=== PATIENT | male | born 1950 | race Hispanic/Latino ===

== ENCOUNTER 2019-07-10 08:43 | Inpatient (IN) | payer MEDICARE, OTHER ==
[~2019-07-10] VITALS: Ht 172.7 cm; Wt 81.6 kg
[2019-07-10 09:11] LABS: BASOPHILS % 0.2 % (0.0-1.0); EOSINOPHILS % 0.2 % (0.0-6.0); HEMATOCRIT 38.9 % (38.2-49.6); HEMOGLOBIN 12.9 g/dL (14.0-18.0); LYMPHOCYTES # (AUTO) 1.4 (1.0-3.2); LYMPHOCYTES % 10.8 % (18.0-39.1); MEAN CORPUSCULAR HEMOGLOBIN 27.2 pg (28-32); MEAN CORPUSCULAR HGB CONC 33.2 g/dL (31-35); MEAN CORPUSCULAR VOLUME 81.9 fL (81-99); MONOCYTES # (AUTO) 0.9 (0.2-0.8); MONOCYTES % 7.1 % (4.4-11.3); NEUTROPHILS # (AUTO) 10.1 (2.1-6.9); NEUTROPHILS % 81.3 % (38.7-80.0); PLATELET COUNT 207 x10e3/uL (140-360); RED BLOOD COUNT 4.75 x10e6/uL (4.3-5.7); RED CELL DISTRIBUTION WIDTH 13.5 % (11.7-14.4)
[2019-07-10 09:18] LABS: CLARITY,URINE HAZY (CLEAR); COLOR,URINE YELLOW (YELLOW); LEUKOCYTE ESTERASE ,URINE NEGATIVE (NEGATIVE); NITRITE,URINE NEGATIVE (NEGATIVE)
[2019-07-10 09:19] LABS: BILIRUBIN,URINE NEGATIVE (NEGATIVE); KETONES,URINE 2+ (NEGATIVE); PROTEIN,URINE DIPSTICK TRACE (NEGATIVE); URINE UROBILINOGEN 0.2 mg/dL (0.2 - 1)
[2019-07-10] MEDS ORDERED: SODIUM CHLORIDE 0.9% 1000ML 1,000 ML IV STA (09:19)
[2019-07-10 09:22] LABS: ALANINE AMINOTRANSFERASE 20 IU/L (0-55); ALBUMIN 4.1 g/dL (3.5-5.0); ALKALINE PHOSPHATASE 96 IU/L (40-150); ANION GAP 15.2 mmol/L (8-16); BLOOD UREA NITROGEN 12 mg/dL (7-26); BUN/CREATININE RATIO 14 (6-25); CALCIUM 9.8 mg/dL (8.4-10.2); CARBON DIOXIDE 24 mmol/L (22-29); CHLORIDE 101 mmol/L (98-107); CREATININE, SERUM 0.83 mg/dL (0.72-1.25); EST GLOMERULAR FILTRATION RATE > 60 ML/MIN (60-); GLUCOSE 216 mg/dL (74-118); POTASSIUM 3.2 mmol/L (3.5-5.1); SODIUM 137 mmol/L (136-145)
[2019-07-10 09:25] LABS: INR 1.04; PROTHROMBIN TIME 14.1 seconds (11.9-14.5)
[2019-07-10 09:26] LABS: PARTIAL THROMBOPLASTIN TIME 40.3 seconds (23.8-35.5)
[2019-07-10 09:30] LABS: BACTERIA,URINE RARE /HPF; EPITHELIAL CELLS,URINE RARE /LPF; MUCUS,URINE MODERATE (RARE); RBC,URINE 0-5 /HPF (0-5); WBC,URINE (MAN) 0-5 /HPF (0-5)
--- NOTE | 2019-07-10 09:36 | NUR ---
pt states he does not take any medications
[2019-07-10 09:37] LABS: MAGNESIUM 2.1 MG/DL (1.3-2.1)
[2019-07-10 09:39] LABS: CREATINE KINASE 24 IU/L (30-200)
[2019-07-10] MEDS ORDERED: PANTOPRAZOLE 40 MG 10ML VIAL IV ONE (10:00)
[2019-07-10] MEDS ORDERED: ONDANSETRON HCL INJ 2MG/ML 2ML 2 MG/ML VIAL IV ONE (10:00)
[2019-07-10] MEDS ORDERED: MORPHINE SULFATE INJ 4 MG/ML INJ 1ML IV ONE (10:00)
[2019-07-10] MEDS ORDERED: POTASSIUM CHLORIDE 20 MEQ TAB CR PO ONE (10:30)
--- NOTE | 2019-07-10 10:31 | Diagnostic Imaging Report ---
CT Abdomen And Pelvis with Intravenous Contrast INDICATION: Epigastric pain with meals ^IGOR/RUQ ABD PAIN, N/V TECHNIQUE: Thin collimation axial images obtained from the diaphragm to the level of the pubic symphysis following the uneventful administration of 100 cc of low osmolar, nonionic intravenous contrast. Dose reduction techniques used: Automated exposure control, adjustment of the mAs and/or kVp according to patient size, standardized low-dose protocol, and/or iterative reconstruction technique. RADIATION DOSE: Total DLP: None mGy*cm Estimated effective dose: (DLP x 0.015 x size factor) mSv CTDIvol has been reviewed. It is below the limits set by the Radiation Protocol Committee (RPC). COMPARISON: None. ABDOMEN FINDINGS: Lung Bases: Trace bibasilar atelectasis. Visualized portion mediastinum is normal. Liver: The right lobe measures 20 cm in length.. No evidence for mass. Gallbladder: Present. There is mild diffuse gallbladder wall hyperemia and pericholecystic inflammation around the cystic duct. Biliary tree: Trace intrahepatic biliary ductal dilatation. The common bile duct measures 10 mm in diameter and comes to a tight taper at the ampulla. Pancreas: Normal attenuation without mass or ductal dilatation. Spleen: 16.1 cm in length. Normal attenuation. No mass. Adrenal Glands: No evidence for mass. Kidneys: Right: Normal enhancement. No soft tissue mass. No hydronephrosis. Left: Normal enhancement. Lower pole cyst measures 17 mm.. No hydronephrosis. Lymph Nodes: Periportal lymph nodes are prominent and increased in number, measuring up to 16 mm. Aorta: Normal in diameter with scattered calcifications PELVIS FINDINGS: Bowel: Stomach: Normal. Small Bowel: Normal in caliber with normal wall thickness. Large Bowel: Normal in caliber with normal wall thickness. Appendix: Normal appendix. Bladder: Circumferential mural thickening. No mass. Prostate gland measures 4.4 x 5.6 cm Peritoneum/retroperitoneum: No free fluid, fluid collection, or free air. Bones: Mild degenerative changes of the spine. No focal osseous lesions. There is left sacralization of L5. IMPRESSION: 1. Mild intrahepatic and extrahepatic biliary ductal dilatation with inflammation in the right upper quadrant near the cystic duct. Findings are concerning for acute cholecystitis. 2. Hepatosplenomegaly. 3. No evidence for bowel obstruction or inflammation. Normal appendix. 4. Mild prostatomegaly with bladder wall thickening suggestive of outlet obstruction. Signed by: Dr. Fredi Eric MD on 07/10/2019 10:28 AM
[2019-07-10] MEDS ORDERED: PIPER-TAZ 3.375 GM 50 ML IV SCH (11:00)
[2019-07-10] MEDS ORDERED: MORPHINE SULFATE INJ 4 MG/ML INJ 1ML IV PRN (11:15)
[2019-07-10] MEDS ORDERED: ONDANSETRON HCL INJ 2MG/ML 2ML 2 MG/ML VIAL IV PRN (11:15)
[2019-07-10] MEDS ORDERED: KCL 20MEQ/.9 SOD CHL 1,000 ML IV ONE (11:15)
--- OUTSIDE RECORDS SUMMARY | 2019-07-10 11:23 | XMS REPORT ---
Author Author [facility] Address Unknown Phone Unavailable Care Team Providers Care Digital Forensics Investigator Name Role Phone Jaquelin KITCHEN Unavailable Unavailable Problems This patient has no known problems. Allergies, Adverse Reactions, Alerts This patient has no known allergies or adverse reactions. Medications This patient has no known medications. Results Test Description Test Time Test Comments Text Results Atomic Results Result Comments CT ABDOMEN/PELVIS W 2019-07-10 10:23:00 [place] [address] Patient Name: DARA GOMEZ MR #: [id number] : 1950 Age/Sex: 69/M Req #: [id number] Adm Physician: Ordered by: ANAY KITCHEN MD Report #: [id number] Location: ER Room/Bed: Procedure: [id number] CT/CT ABDOMEN/PELVIS W Exam Date: Exam Time: REPORT STATUS: Signed CT Abdomen And Pelvis with Intravenous Contrast INDICATION: Epi gastric pain with meals IGOR/RUQ ABD PAIN, N/V TECHNIQUE: Thin collimation axial images obtained from the diaphragm to the level of the pubic symphysis following the uneventful administration of 100 cc of low osmolar, nonionic intravenous contrast. Dose reduction techniques used: Automated exposure control, adjustment of the mAs and/or kVp according to patient size, standardized low-dose protocol, and/or iterative reconstruction technique. RADIATION DOSE: Total DLP: None mGy*cm Estimated effective dose: (DLP x 0.015 x size factor) mSv CTDIvol has been reviewed. It is below the limits set by the Radiation Protocol Committee (RPC). COMPARISON: None. ABDOMEN FINDINGS: Lung Bases: Trace bibasilar atelectasis. Visualized portion mediastinum is normal. Liver: The right lobe measures 20 cm in length.. No evidence for mass. Gallbladder: Present. There is mild diffuse gallbladder wall hyperemia and pericholecystic inflammation around the cystic duct. Biliary tree: Trace intrahepatic biliary ductal dilatation. The common bile duct measures 10 mm in diameter and comes to a tight taper at the ampulla. Pancreas: Normal attenuation without mass or ductal dilatation. Spleen: 16.1 cm in length. Normal attenuation. No mass. Adrenal Glands: No evidence for mass. Kidneys: Right: Normal enhancement. No soft tissue mass. No hydronephrosis. Left: Normal enhancement. Lower pole cyst measures 17 mm.. No hydronephrosis. Lymph Nodes: Periportal lymph nodes are prominent and increased in number, measuring up to 16 mm. Aorta: Normal in diameter with scattered calcifications PELVIS FINDINGS: Bowel: Stomach: Normal. Small Bowel: Normal in caliber with normal wall thickness. Large Bowel: Normal in caliber with normal wall thickness. Appendix: Normal appendix. Bladder: Circumferential mural thickening. No mass. Prostate gland measures 4.4 x 5.6 cm Peritoneum/retroperitoneum: No free fluid, fluid collection, or free air. Bones: Mild degenerative changes of the spine. No focal osseous lesions. There is left sacralization of L5. IMPRESSION: 1. Mild intrahepatic and extrahepatic biliary ductal dilatation with inflammation in the right upper quadrant near the cystic duct. Findings are concerning for acute cholecystitis. 2. Hepatosplenomegaly. 3. No evidence for bowel obstruction or inflammation. Normal appendix. 4. Mild prostatomegaly with bladder wall thickening suggestive of outlet obstruction. Signed by: Dr. Lynda Eric MD on 07/10/2019 10:28 AM Dictated By: LYNDA ERIC MD [id number] Transcribed By: FRANKIE on 07/10/19 1028 COPY TO: ANAY KITCHEN MD
--- NOTE | 2019-07-10 12:33 | Diagnostic Imaging Report ---
EXAMINATION: CHEST SINGLE (PORTABLE) COMPARISON: CT abdomen 1013 hours INDICATION: ^ABD PAIN ^[id number] ^1213 DISCUSSION: Frontal view of the chest obtained at 1211 hours. HEART AND MEDIASTINUM: The cardiomediastinal silhouette is unremarkable. LINES: None. LUNGS: Trace bibasilar atelectasis. PLEURA: No pleural effusion or pneumothorax. BONES AND SOFT TISSUES: Healed left upper rib fractures, numbers 4-6. The soft tissues are normal. IMPRESSION: Mild bibasilar atelectasis. Signed by: Dr. Fredi Eric MD on 07/10/2019 12:30 PM
--- NOTE | 2019-07-10 12:53 | NUR ---
dr pola nayak at pt bedside
--- NOTE | 2019-07-10 13:43 | Consultation ---
DATE OF CONSULTATION: Stat Consultation REASON FOR CONSULTATION: Cholecystitis. HISTORY OF PRESENT ILLNESS: The patient is a pleasant 69-year-old otherwise healthy male, who started having mid upper abdominal pain on Thursday and this was associated with nausea. He did not have any previous episodes. He did not have any history of indigestion, regurgitation, pyrosis, or any GI problems. No history of constipation or rectal bleeding. The patient persisted with the pain, which was severe and then came to the emergency room where he had a CT scan that revealed inflammatory changes in the area of the neck of the gallbladder consistent with cholecystitis. No stones were seen. There was some mild ductal dilatation of the intrahepatic radicles. The common duct was 10 mm. The patient's liver chemistries were normal except for bilirubin of 1.7. PAST MEDICAL HISTORY: Significant for no major medical problems. The only surgery he has had is a repair of umbilical hernia. He is not taking any medicines. He does not drink. Does not smoke. He has no allergies. REVIEW OF SYSTEMS: Significant for what has been stated. He denies any constipation, however, has not had a bowel movement since Thursday when the pain started. PHYSICAL EXAMINATION: GENERAL: Reveals a 69-year-old male, at this point he is in no acute distress. HEAD, EYES, EARS, NOSE, AND THROAT: Revealed no acute process. LUNGS: Clear. HEART: Reveals regular sinus rhythm. ABDOMEN: Somewhat distended and tympanitic, but it is nontender. There is a healed umbilical scar with no recurrence. EXTREMITIES: Revealed no clubbing, cyanosis, or edema. NEUROLOGIC: Nonfocal. He has difficulties hearing on the right side. LABORATORY DATA: Admission CT scan has been discussed. Admission white count is 12.45 with normal electrolytes except for a potassium of 3.2. The liver chemistries are normal except for bilirubin of 1.7. Amylase and lipase are normal. ASSESSMENT: Probable cholecystitis. There is some ductal dilatation, which will be evaluated with an MRCP, which could not be done today, but will be done early in the morning tomorrow. In the meantime, since the CAT scan did not reveal any stones, we are going to go ahead and obtain a stat ultrasound to further evaluate the issue. Further surgical recommendation will be forthcoming once we have completed the workup. In the meantime, the patient is getting intravenous antibiotics and we will keep the patient n.p.o. Thank you very much for the courtesy of this consultation. MD CARLIN Nagy/BIBI /[id number]
--- NOTE | 2019-07-10 14:17 | Diagnostic Imaging Report ---
HISTORY: ^r/o gallstones ^[id number] ^1335 TECHNIQUE: Selected images from limited abdominal ultrasound provided for INTERPRETATION: COMPARISON: CT abdomen/pelvis 1013 hours FINDINGS: Pancreas: Not visualized due to bowel gas. Liver: Measures 15 cm in sagittal plane. The echotexture is normal. No mass in the visualized portions. Portal Vein: Measures 0.9 cm. Proper directional flow on spectral Doppler interrogation. Intrahepatic bile ducts: Trace central intrahepatic biliary duct distention. Gallbladder: Present and is filled with calcified gallstones and sludge. No decubitus images were obtained to determine mobility. No gallbladder wall thickening or pericholecystic fluid. Sonographic Villalta sign is negative. CBD: 0.8 cm. No intraluminal filling defects of the visualized portions. Right Kidney: 11.1 cm in greatest length. The echotexture is normal. There is no evidence for mass. There is no collecting system dilatation or evidence of obstruction. No renal calculi evident. No adjacent free fluid or fluid collections. Visualized IVC and aorta are not visualized due to bowel gas. There is no free fluid. IMPRESSION: Cholelithiasis. Mobility of the gallstones cannot be determined. No sonographic evidence of acute cholecystitis. Nonvisualization of the pancreas, aorta, and IVC due to bowel gas. Signed by: Dr. Fredi Eric MD on 07/10/2019 2:13 PM
[2019-07-10] MEDS ORDERED: SODIUM CHLORIDE 0.9% 50ML 50 ML ONE (16:15)
[2019-07-10] MEDS ORDERED: IOPAMIDOL 370 MG/ML 200 ML INFUS..BTL INJ ONE (16:15)
[2019-07-10 17:04] LABS: CREATINE KINASE 26 IU/L (30-200)
[2019-07-10 17:14] VITALS: BP 155/76
[2019-07-10] MEDS: PIPER-TAZ 3.375 GM 50 ML IV SCH (17:54)
[2019-07-10 20:00] VITALS: BP 146/66
--- NOTE | 2019-07-10 20:28 | NUR ---
HIGH TEMP. NOTED. NOTIFIED DR CERNA. NEW ORDER RECEIVED.
[2019-07-10] MEDS ORDERED: ACETAMINOPHEN 650 MG SUPP PR PRN (20:30)
[2019-07-10 21:00] VITALS: BP 146/66
[2019-07-10] MEDS: ACETAMINOPHEN 325 MG TAB PO PRN (21:06)
[2019-07-10 23:24] LABS: CHOL/HDL RATIO 2.5 (3.9-4.7)
[2019-07-10 23:35] LABS: CREATINE KINASE 23 IU/L (30-200)
[2019-07-11] VITALS (7 sets, daily range): BP systolic 130–139; BP diastolic 59–64
[2019-07-11] MEDS: PIPER-TAZ 3.375 GM 50 ML IV SCH ×4 (01:14→23:45)
--- NOTE | 2019-07-11 05:21 | History and Physical ---
CHIEF COMPLAINT: Right upper quadrant abdominal pain. HISTORY OF PRESENT ILLNESS: This is a 69-year-old male with no past medical history, does not take any medications at home, presents to the ED with a 2-day history of right upper quadrant abdominal pain that began on Thursday of this week. The patient reports that he suddenly, after he ate some breakfast, noticed some right upper quadrant abdominal pain that continued to get progressively worse. He had some episodes of nausea and vomiting. Denies any hematemesis or hemoptysis. Denies any chest pain. The patient came into the ED due to worsening abdominal pain. He was found to have possible acute cholecystitis in which General Surgery has been consulted. The patient seen and evaluated at bedside on the medical floor with the nursing staff. The patient is currently doing well with no complaints. The patient's son was at bedside and was able to translate to his father the plan of care. REVIEW OF SYSTEMS: Pertinent positive: Right upper quadrant abdominal pain, nausea, vomiting, and decreased oral intake. Pertinent negatives: Denies any chest pain, palpitation, dysuria, hematuria, frequency, urgency, lightheadedness, dizziness, headaches, shortness of breath, cough, congestion, fever, or any other complaints. The rest of 14-point review of systems have been reviewed with the patient and are negative. ALLERGIES: NO KNOWN DRUG ALLERGIES. HOME MEDICATIONS: None. PAST MEDICAL HISTORY: Reports none. PAST SURGICAL HISTORY: None. FAMILY HISTORY: Hypertension and diabetes. SOCIAL HISTORY: No drugs. No alcohol. Does not smoke. He is . He has children. PHYSICAL EXAMINATION: VITAL SIGNS: Temperature is 101.4 is the T-max. On admission, his temperature was 99.5, pulse is 102, respiratory rate is 18, blood pressure 146/66, and pulse ox 94% on room air. LABORATORY FINDINGS: White count was 12.4, hemoglobin 12.9, hematocrit 38.9, platelets of 207. Coagulation; PT 14, INR 1, PTT 40. Chemistry; sodium is 137, potassium is 3.2, chloride 101, bicarb 24, anion gap of 15, BUN is 12, creatinine 0.83, glucose is 216, calcium 9.8, and magnesium 2.1. Total bilirubin was 1.7, AST 11, ALT 20, and alkaline phosphatase is 96. His CK was negative. Troponins were all negative. Total protein is 8.1, lipase is 18, and amylase is 25. Urinalysis shows 3+ glucose, 2+ ketones. MICROBIOLOGY: None. IMAGING STUDIES: Ultrasound of the gallbladder showed cholelithiasis, but no evidence of cholecystitis. CT of the abdomen and pelvis showed mildly intrahepatic and extrahepatic biliary ductal dilatation with inflammation of the right upper quadrant in the cystic duct, findings concerning for acute cholecystitis. Hepatosplenomegaly seen. No evidence of bowel obstruction or inflammation. Normal appendix. Mild prostatomegaly with bladder wall thickening suggestive of outlet obstruction. Chest x-ray was found to show mild bibasilar atelectasis. PHYSICAL EXAMINATION: GENERAL: No acute distress, alert, and oriented x3. Cooperative on examination. HEENT: Head; normocephalic, atraumatic. Eyes; pupils are equal, round, and reactive to light bilaterally. Extraocular movements are intact bilaterally. Throat; no evidence of erythema or exudates in the posterior pharynx. Has poor dentition. NECK: Supple. Good range of motion. PULMONARY: Clear to auscultation bilaterally. No wheezing, rales, or rhonchi. No crackles appreciated. CARDIOVASCULAR: Positive S1, S2. No murmurs, rubs, or gallops. ABDOMEN: He was tender to palpation in the right upper quadrant. No rebound. No guarding. MUSCULOSKELETAL: Strength is 5/5 throughout. No evidence of any muscle deficits on examination. No weakness appreciated. NEUROLOGIC: Cranial nerves 2 through 12 were grossly intact. No evidence of any neurological deficits on exam. SKIN: Intact. Warm to touch. Good cap refill. PSYCHIATRIC: Normal affect and mood. EXTREMITIES: No edema. Good range of motion throughout. IMPRESSION: 1. Concern for acute cholecystitis. 2. Abdominal pain, nausea, and vomiting. 3. Electrolyte abnormalities. 4. Hyperglycemia. PLAN: At this time, General Surgery has been consulted. MRCP has been ordered. GI will be consulted. Pain control, n.p.o., IV fluids, IV antibiotics. I did go ahead and get blood cultures x2. I also ordered suppository Tylenol. We are going to replace his electrolytes accordingly. As for his hyperglycemia, I will go ahead and get a lipid panel and hemoglobin A1c for further investigation. Get a.m. labs. At this time, General Surgery already evaluated the patient and we will keep the patient n.p.o. for now. He will likely need some sort of surgical intervention in the next several days. Otherwise, we will put him on SCDs for DVT prophylaxis, to avoid any anticoagulation for possible surgery or any kind of procedure here in the next 1 to 2 days. I discussed the plan of care with the patient, patient's son, and nursing staff. MD ANA Starks/BIBI /[id number]
[2019-07-11 05:24] LABS: BASOPHILS % 0.4 % (0.0-1.0); EOSINOPHILS % 0.3 % (0.0-6.0); HEMATOCRIT 38.6 % (38.2-49.6); HEMOGLOBIN 12.7 g/dL (14.0-18.0); LYMPHOCYTES # (AUTO) 0.8 (1.0-3.2); MEAN CORPUSCULAR HEMOGLOBIN 26.9 pg (28-32); MEAN CORPUSCULAR HGB CONC 32.9 g/dL (31-35); MEAN CORPUSCULAR VOLUME 81.8 fL (81-99); MONOCYTES # (AUTO) 0.8 (0.2-0.8); MONOCYTES % 7.7 % (4.4-11.3); NEUTROPHILS # (AUTO) 8.8 (2.1-6.9); NEUTROPHILS % 83.1 % (38.7-80.0); PLATELET COUNT 166 x10e3/uL (140-360); RED BLOOD COUNT 4.72 x10e6/uL (4.3-5.7); RED CELL DISTRIBUTION WIDTH 13.5 % (11.7-14.4)
[2019-07-11 05:50] LABS: ALANINE AMINOTRANSFERASE 112 IU/L (0-55); ALBUMIN 3.5 g/dL (3.5-5.0); ALBUMIN/GLOBULIN RATIO 0.9 (0.8-2.0); ALKALINE PHOSPHATASE 231 IU/L (40-150); ANION GAP 14.4 mmol/L (8-16); BLOOD UREA NITROGEN 14 mg/dL (7-26); BUN/CREATININE RATIO 19 (6-25); CALCIUM 9.3 mg/dL (8.4-10.2); CARBON DIOXIDE 21 mmol/L (22-29); CHLORIDE 103 mmol/L (98-107); CREATININE, SERUM 0.73 mg/dL (0.72-1.25); EST GLOMERULAR FILTRATION RATE > 60 ML/MIN (60-); GLUCOSE 163 mg/dL (74-118); LIPASE 10 U/L (8-78); POTASSIUM 3.4 mmol/L (3.5-5.1); SODIUM 135 mmol/L (136-145)
[2019-07-11 06:02] LABS: CREATINE KINASE 29 IU/L (30-200)
[2019-07-11] MEDS: ACETAMINOPHEN 325 MG TAB PO PRN (06:05)
--- NOTE | 2019-07-11 07:22 | NUR ---
Patient is back from MRI at this time. Report received from night nurse while patient is in MRI.
--- NOTE | 2019-07-11 08:34 | Diagnostic Imaging Report ---
MRCP (magnetic resonance cholangiopancreatography) HISTORY: Cholecystitis Comparison: CT of the abdomen and pelvis and ultrasound of the abdomen performed 07/10/2019, Technique: Multiplanar and multisequence MRI images of the abdomen were obtained without contrast. Three-dimensional reconstructed images of the biliary tree are also reviewed. FINDINGS: The common bile duct appears normal in caliber, measuring 7 mm in maximum diameter. No intrahepatic biliary dilation. No pancreatic ductal dilation. No filling defects are identified within the biliary system to suggest choledocholithiasis. The gallbladder contains multiple gallstones. There is mild gallbladder wall thickening and surrounding inflammatory change. No mass is identified in the region of the ampulla or pancreatic head. Unremarkable appearance of the liver, pancreas, spleen, adrenal glands, and kidneys. The visualized bowel loops appear normal in caliber. No free fluid or lymphadenopathy is seen within the abdomen. Impression: 1. Cholelithiasis with evidence of acute cholecystitis. 2. No evidence of choledocholithiasis or biliary ductal dilatation. No filling defects are identified within the biliary tree. Signed by: Les Pina MD on 07/11/2019 8:30 AM
--- NOTE | 2019-07-11 09:25 | NUR ---
OR nurse Cecilia states HIDA scan ordered by Dr. Ashley Garcia is cancelled.
--- NOTE | 2019-07-11 10:05 | NUR ---
Patient is transported for surgery at this time.
[2019-07-11] MEDS ORDERED: BUPIVACAINE 0.25%/EPI 30ML SDV INJ ONE (10:14)
[2019-07-11] MEDS ORDERED: PIPER-TAZ 3.375 GM 50 ML ONE (11:25)
[2019-07-11] MEDS ORDERED: METRONIDAZOLE 500MG/NS 100ML 100 ML IV ONE (11:41)
[2019-07-11] MEDS ORDERED: ONDANSETRON HCL INJ 2MG/ML 2ML 2 MG/ML VIAL IV PRN (13:45)
[2019-07-11] MEDS ORDERED: FENTANYL CITRATE/PF 100MCG/2 ML INJ ONE ×2 (13:55→18:01)
[2019-07-11] MEDS ORDERED: PIPER-TAZ 3.375 GM 50 ML IV SCH (14:00)
[2019-07-11] MEDS ORDERED: MEPERIDINE HCL INJ 25 MG/ML VIAL ONE (14:11)
--- NOTE | 2019-07-11 14:37 | NUR ---
Patient is back from surgery at this time. Abdominal surgical site no bleeding, dressing dry and intact. OSVALDO drain to right lower abdomen, emptied 50 ML of blood. Respiration even and unlabored without SOB. Patient is currently NPO at this time, but can have ice chips per Dr. Suad Carr. Family at bedside. Call light in reach.
--- NOTE | 2019-07-11 15:16 | Operative Report ---
DATE OF PROCEDURE: 07/11/2019 SURGEON: Piter Dasilva MD PREOPERATIVE DIAGNOSES: Acute cholecystitis. POSTOPERATIVE DIAGNOSES: 1. Acute gangrenous cholecystitis with empyema of the gallbladder, an abscess formation, all secondary to cholelithiasis. 2. Diabetes mellitus, undiagnosed. INDICATION AND FINDINGS: The patient is a 69-year-old pleasant male, admitted to the hospital, complaining of abdominal pains since Thursday prior to admission. In the emergency room, he was evaluated, he had a CT scan that revealed changes consistent with cholecystitis. The presence of gallstones was confirmed by ultrasound. He had a preoperative MRI/CT because there was some ductal dilatation. On the CT scan raising the possibility of choledocholithiasis. INTRAOPERATIVE FINDINGS: Acute gangrenous cholecystitis with empyema of the gallbladder and an abscess formation in the pericystocolic area of the fundus of the gallbladder. There was no ductal dilatation. There were several large stones. DESCRIPTION OF PROCEDURE: With the patient lying on the operative table in supine position after administration of general anesthesia, he was prepped and draped for laparoscopic cholecystectomy. The procedure was begun by establishing pneumoperitoneum in the right upper quadrant midclavicular line because of previous umbilical hernia repair. After we did that, then we placed the 10/11 trocar in the umbilical site as well as subxiphoid region, and lateral working port in the right axillary region and then we had to be put a 5th trocar due to the severity of the inflammatory process in the left upper quadrant. When he did the laparoscopy, the omentum was stuck and very thicken to the gallbladder in the area of the fundus. There was severe inflammatory changes. We methodically exposed the gallbladder by detaching the omentum from the fundus until we exposed the gallbladder. There was some pus that was encountered in the in the fundus of the gallbladder; cultures and sensitivities were taken of that. We then began to mobilize the gallbladder by grasping the two forces through the fundus and the neck of the gallbladder carefully and methodically until we after careful dissection and that was begun in the gallbladder neck posteriorly exposed the cystic duct. The junction with the common bile duct was seen 360 degrees circumferentially. We also identified the cystic artery and a plate of the liver at that point, we transected the cystic duct between three titanium clips as well as the cystic artery and then continued to mobilize the gallbladder from the liver bed and 2nd branch which was located posterior was identified, transected between titanium clips. We continued the dissection with mobilization of the gallbladder using a combination of electrocautery, hydrodissection counter, and counter traction until we detached the gallbladder; placed in an endobag and removed through the umbilical port. After we did that, we inspected the operative field, there was some minor oozing that was cauterized using electrocautery. All the bleeding was stopped. We then placed a 10 mm flat Zeferino-Grey drain through the right anterior axillary line trocar and secured there with a 2-0 silk, connected it to self-suction. After did that, we inspected the operative field and there was no bile leak, no bleeding, no apparent bowel injury. We went ahead and released the pneumoperitoneum, closed the wound using 3-0 Vicryl as well as the subxiphoid port and the skin of all the port was closed using carlie except for the umbilical port, which was closed using 3-0 silk because of previous surgery there and scar formation. Sterile dressing was applied. The patient tolerated the procedure well and taken to recovery room in stable condition, and no family was found in the waiting room area. I placed a 10 mm Zeferino-Grey drain was placed in the right upper quadrant to drain the gallbladder fossa and foramen of [place]. MD CARLIN Nagy/BIBI /[id number]
--- NOTE | 2019-07-11 15:36 | Progress Note ---
DATE: 07/11/2019 Medicine Progress Note SUBJECTIVE: The patient underwent laparoscopic cholecystectomy. Doing well with no other issues at this time. PHYSICAL EXAMINATION: VITAL SIGNS: Temperature 98.8, pulse 90, respiratory rate is 18, blood pressure 136/63, pulse ox 95% on room air. GENERAL: Not in acute distress. Alert, and oriented x3. Cooperative on examination. HEENT: Head; normocephalic, atraumatic. Eyes; pupils are equal, round, and reactive to light bilaterally. Extraocular movements are intact bilaterally. NECK: Supple. Good range of motion. CARDIOVASCULAR: Positive S1, S2. No murmurs, rubs, or gallops. ABDOMEN: Soft, nondistended, and nontender to palpation. Bowel sounds present. MUSCULOSKELETAL: Strength is 5/5 throughout. No evidence of any muscle deficits on examination. No weakness appreciated. NEUROLOGIC: Cranial nerves 2 through 12 were grossly intact. No evidence of any neurological deficits on exam. SKIN: Intact. Warm to touch. Good cap refill. PSYCHIATRIC: Normal affect and mood. EXTREMITIES: No edema. Good range of motion throughout. LABORATORY FINDINGS: Show white count 10.5, hemoglobin 12.7, hematocrit is 38, platelets of 166. Chemistries; sodium 135, potassium 3.4, chloride 103, bicarb 21, anion gap of 14, BUN is 14, creatinine is 0.73, glucose 163. LFTs slightly elevated, AST 70, ALT 112, total bilirubin 2.3, alkaline phosphatase 231. Troponins were all negative. Blood cultures no growth today. Gram stain, no growth today. Urine cultures were no growth. MRCP performed today shows cholelithiasis with evidence of acute cholecystitis. No evidence of choledocholithiasis or biliary ductal dilatation. No filling defects are identified within the biliary tree. IMPRESSION: 1. Acute cholecystitis. 2. Abdominal pain, nausea and vomiting. 3. Electrolyte abnormalities. 4. Hyperglycemia. PLAN: The patient is undergoing laparoscopic cholecystectomy. Started on clear liquid diet after surgery per General Surgery recommendations. IV fluids, IV antibiotics and pain control. Blood culture showed no growth today. We will continue to monitor all cultures. Once he is p.o., we will initiate diet. Put him on SCDs for DVT prophylaxis. Discussed plan of care with nursing staff. MD ANA Starks/NEALL /[id number]
[2019-07-11] MEDS ORDERED: DEXAMETHASONE SOD PHOS INJ 4 MG/ML VIAL ONE (17:34)
[2019-07-11] MEDS ORDERED: PROPOFOL IV EMULSION 10 MG/ML 20 ML VIAL ONE (17:34)
[2019-07-11] MEDS ORDERED: LIDOCAINE HCL 2% LOCAL INJ 5 ML SDV VIAL INJ ONE (17:34)
[2019-07-11] MEDS ORDERED: ROCURONIUM BROMIDE 10 MG/ML 5ML VIAL ONE (17:34)
[2019-07-11] MEDS ORDERED: SEVOFLURANE INHAL SOLN 250 ML PEN BTL ONE (17:34)
[2019-07-11] MEDS ORDERED: ONDANSETRON HCL INJ 2MG/ML 2ML 2 MG/ML VIAL ONE (17:34)
[2019-07-11] MEDS: HYDROMORPHONE 1MG/1ML INJ IV PRN (18:38)
--- NOTE | 2019-07-11 19:20 | NUR ---
Received patient awake, not in distress, no complaints of pain at this time, family members at bedside. Call light within easy reach, advised to call for assistance anytime as needed. RLQ OSVALDO drain dressing moderately soaked, dressing reinforced with gauze and foam tape, 4 lap sites dressing dry and intact. Will monitor patient closely
[2019-07-11] MEDS: D5.45%NS/KCL 20MEQ 1,000 ML IV SCH ×2 (19:22→23:41)
[2019-07-11] MEDS: METRONIDAZOLE 500MG/NS 100ML 100 ML IV SCH (19:46)
--- NOTE | 2019-07-11 19:52 | NUR ---
Report given to production supervisor off shift. Respiration even and unlabored without SOB. Call light in reach. Family members at bedside.
[2019-07-12] VITALS (8 sets, daily range): BP systolic 138–168; BP diastolic 65–79
[2019-07-12] MEDS: METRONIDAZOLE 500MG/NS 100ML 100 ML IV SCH ×2 (00:30→05:00)
[2019-07-12] MEDS: HYDROMORPHONE 1MG/1ML INJ IV PRN ×3 (04:56→23:20)
[2019-07-12 05:11] LABS: BASOPHILS % 0.1 % (0.0-1.0); HEMATOCRIT 35.8 % (38.2-49.6); HEMOGLOBIN 11.5 g/dL (14.0-18.0); LYMPHOCYTES # (AUTO) 0.5 (1.0-3.2); LYMPHOCYTES % 6.2 % (18.0-39.1); MEAN CORPUSCULAR HEMOGLOBIN 26.7 pg (28-32); MEAN CORPUSCULAR HGB CONC 32.1 g/dL (31-35); MEAN CORPUSCULAR VOLUME 83.1 fL (81-99); MONOCYTES # (AUTO) 0.7 (0.2-0.8); MONOCYTES % 9.1 % (4.4-11.3); NEUTROPHILS # (AUTO) 6.4 (2.1-6.9); NEUTROPHILS % 84.3 % (38.7-80.0); PLATELET COUNT 154 x10e3/uL (140-360); RED BLOOD COUNT 4.31 x10e6/uL (4.3-5.7); RED CELL DISTRIBUTION WIDTH 13.7 % (11.7-14.4)
[2019-07-12 05:31] LABS: ALANINE AMINOTRANSFERASE 217 IU/L (0-55); ALBUMIN/GLOBULIN RATIO 0.8 (0.8-2.0); ALKALINE PHOSPHATASE 242 IU/L (40-150); ANION GAP 14.6 mmol/L (8-16); BLOOD UREA NITROGEN 17 mg/dL (7-26); BUN/CREATININE RATIO 19 (6-25); CALCIUM 8.9 mg/dL (8.4-10.2); CARBON DIOXIDE 20 mmol/L (22-29); CHLORIDE 108 mmol/L (98-107); EST GLOMERULAR FILTRATION RATE > 60 ML/MIN (60-); GLUCOSE 265 mg/dL (74-118); POTASSIUM 3.6 mmol/L (3.5-5.1); SODIUM 139 mmol/L (136-145)
[2019-07-12] MEDS: PIPER-TAZ 3.375 GM 50 ML IV SCH ×4 (06:10→23:20)
--- NOTE | 2019-07-12 07:05 | NUR ---
Received patient lying in bed with eyes open. Denies pain at this time. Abdominal dressing intact with OSVALDO to LLQ in placed and intact. Respiration even and unlabored without SOB.Call light in reach.
--- NOTE | 2019-07-12 10:52 | Progress Note ---
DATE: 07/12/2019 Medicine Progress Note SUBJECTIVE: The patient underwent laparoscopic cholecystectomy. He now has a OSVALDO drain that was performed yesterday 07/11/2019. He is doing well postoperatively, still n.p.o. except for ice chips. PHYSICAL EXAMINATION: VITAL SIGNS: Temperature is 97.2, pulse 85, respiratory rate 16, blood pressure 130/64, and pulse ox 97% on room air. GENERAL: Not in acute distress. Alert and oriented x3. Cooperative on examination. HEENT: Head; normocephalic, atraumatic. Eyes; pupils are equal, round, and reactive to light bilaterally. Extraocular movements intact bilaterally. Throat; no evidence of erythema or exudates in the posterior pharynx. Has poor dentition. NECK: Supple. Good range of motion. PULMONARY: Clear to auscultation bilaterally. No wheezing, no rales, no rhonchi, no crackles appreciated. CARDIOVASCULAR: Positive S1 and S2. No murmurs, rubs, or gallops appreciated. ABDOMEN: Soft, nondistended, and nontender to palpation. Bowel sounds present. He does have a OSVALDO drain in the right upper quadrant. SKIN: Intact. Warm to touch. Good cap refill. PSYCHIATRIC: Normal affect and mood. EXTREMITIES: No edema. Good range of motion throughout. LABORATORY FINDINGS: Show white count 7.5, hemoglobin 11.5, hematocrit is 35, and platelets of 154. Chemistry; sodium 139, potassium 3.6, chloride 108, bicarb 20, anion gap of 14, BUN 17, and creatinine is 0.9. LFTs are slightly elevated. Total bilirubin is 1.4, AST 217, ALT 217, and alkaline phosphatase is 242. Blood cultures, no growth to date. Urine cultures, no growth to date. Gallbladder culture shows gram-negative bacilli. IMPRESSION: 1. Acute cholecystitis, status post laparoscopic cholecystectomy, now with a OSVALDO drain. 2. Abdominal pain with nausea and vomiting, resolved. 3. Electrolyte abnormalities. 4. Type 2 diabetes. A1c is 8.3, explains why he has hyperglycemia. PLAN: At this time, continue with postop care. He has a OSVALDO drain, now has significant amount of fluid effusion, less likely that he will be discharged today. We will need to monitor the wound cultures that were sent yesterday from the gallbladder, which shows gram-negative bacilli. Continue with IV antibiotics for now. Continue to follow with General Surgery. He is n.p.o. Diet will be advanced per General Surgery. As for his diabetes, A1c is 8.3. We will continue with sliding scale while he is here. He will likely need to follow up as an outpatient with primary care physician. Upon discharge, he will be discharged on oral anti-glycemic medication for his type 2 diabetes diagnosis. Otherwise, continue to encourage ambulation. I will add low-dose heparin for DVT prophylaxis. MD ANA Starks/MODJacob /[id number]
[2019-07-12] MEDS: D5.45%NS/KCL 20MEQ 1,000 ML IV SCH (12:20)
[2019-07-12] MEDS: HYDROCODONE/APAP 7.5MG-325MG 1 EA TAB PO PRN (12:34)
--- NOTE | 2019-07-12 19:00 | NUR ---
Report given to weight shifter. Respiration even and unlabored without SOB. Call light in reach.
[2019-07-12] MEDS: ACETAMINOPHEN 325 MG TAB PO PRN (23:20)
[2019-07-13] MEDS: D5.45%NS/KCL 20MEQ 1,000 ML IV SCH (02:48)
[2019-07-13 04:00] VITALS: BP 152/78
[2019-07-13 05:12] LABS: BASOPHILS % 0.2 % (0.0-1.0); EOSINOPHILS % 0.9 % (0.0-6.0); HEMATOCRIT 34.1 % (38.2-49.6); HEMOGLOBIN 10.6 g/dL (14.0-18.0); LYMPHOCYTES # (AUTO) 0.5 (1.0-3.2); LYMPHOCYTES % 11.4 % (18.0-39.1); MEAN CORPUSCULAR HEMOGLOBIN 26.6 pg (28-32); MEAN CORPUSCULAR HGB CONC 31.1 g/dL (31-35); MEAN CORPUSCULAR VOLUME 85.5 fL (81-99); MONOCYTES # (AUTO) 0.5 (0.2-0.8); MONOCYTES % 10.9 % (4.4-11.3); NEUTROPHILS # (AUTO) 3.4 (2.1-6.9); NEUTROPHILS % 76.4 % (38.7-80.0); PLATELET COUNT 152 x10e3/uL (140-360); RED BLOOD COUNT 3.99 x10e6/uL (4.3-5.7); RED CELL DISTRIBUTION WIDTH 13.6 % (11.7-14.4)
[2019-07-13] MEDS: PIPER-TAZ 3.375 GM 50 ML IV SCH ×2 (05:19→12:16)
[2019-07-13 05:37] LABS: ALANINE AMINOTRANSFERASE 147 IU/L (0-55); ALBUMIN 2.8 g/dL (3.5-5.0); ALBUMIN/GLOBULIN RATIO 0.7 (0.8-2.0); ALKALINE PHOSPHATASE 255 IU/L (40-150); ANION GAP 12.6 mmol/L (8-16); BLOOD UREA NITROGEN 16 mg/dL (7-26); BUN/CREATININE RATIO 22 (6-25); CALCIUM 8.7 mg/dL (8.4-10.2); CARBON DIOXIDE 24 mmol/L (22-29); CHLORIDE 106 mmol/L (98-107); CREATININE, SERUM 0.73 mg/dL (0.72-1.25); EST GLOMERULAR FILTRATION RATE > 60 ML/MIN (60-); GLUCOSE 234 mg/dL (74-118); POTASSIUM 3.6 mmol/L (3.5-5.1); SODIUM 139 mmol/L (136-145)
[2019-07-13 08:51] VITALS: BP 155/73
[2019-07-13 08:53] VITALS: BP 155/73
[2019-07-13 08:55] VITALS: BP 155/73
[2019-07-13] MEDS: HYDROCODONE/APAP 7.5MG-325MG 1 EA TAB PO PRN (09:22)
[2019-07-13 11:28] VITALS: BP 159/77
--- NOTE | 2019-07-13 12:25 | NUR ---
IMM letter delivered and explained to pt and family at bedside. They verbalized understanding. Pt asked his son to sign. Signed copy placed in chart. Copy to pt's son. Dr. Flynn asked CM to give pt PCP information, since pt does not have one. List of [facility] PCPs given to pt. CM explained that they can log onto [facility]'s website and log into pt's account to get a more accurate list. Pt's son states that his sister usually makes medical decisions for pt, so he will relay the information to her.
--- NOTE | 2019-07-13 13:37 | NUR ---
Received consult for diabetic diet education Nutrition Education Learner(s): pt and family member Time spent: 5-10 minutes Barriers: No barriers identified Cultural/Language Modifications: Pts family member translated diet education information for patient Readiness: Acceptance Method: explanation/discussion, handout Topics: Diabetic diet - Carbohydrate counting handouts, Reading the nutrition label Understanding/Compliance: Pt verbalized understanding and did not have any questions Signed: Merced Landaverde RD, LD
[2019-07-13] MEDS ORDERED: TYLENOL # 31 EA PO (15:04)
[2019-07-13] MEDS ORDERED: LEVAQUIN500 MG PO (15:05)
[2019-07-13] MEDS ORDERED: JANUVIA100 MG PO (15:05)
--- NOTE | 2019-07-14 09:47 | Discharge Summary ---
FINAL DISCHARGE DIAGNOSES: 1. Acute cholecystitis, status post laparoscopic cholecystectomy. 2. Abdominal pain, nausea, and vomiting due to acute cholecystitis-resolved. 3. Type 2 diabetes, newly diagnosed. CONSULTANTS: General surgery. VITAL SIGNS: Temperature is 98.6, pulse 82, respiratory rate is 20, blood pressure is 155/73, and pulse ox 94% on room air. LABORATORY DATA: Labs show white count on admission 12.4, down trending to 4.4 on discharge, hemoglobin 10.6, hematocrit 34, platelets of 152. Coagulation; PT 14, INR 1, PTT 40. Chemistry; sodium 139, potassium 3.6, chloride 106, bicarbonate 24, anion gap of 12, BUN is 16, creatinine is 0.73. Hemoglobin A1c 8.3, calcium is 8.7, total bilirubin is 1.1, AST 73, ALT 147, alkaline phosphatase 255, albumin is 2.8. LDL was 48, lipase was 10, amylase is 25. Troponins were all negative. UA negative. Urine cultures negative. Blood cultures x2 negative. Gallbladder culture show E coli pansensitive. IMAGING STUDIES: Gallbladder ultrasound, cholelithiasis, mobility of the gallstones can be determined. Sonographic evidence of acute cholecystitis. Nonvisualization of the pancreas, aorta and IVC due to bowel gas. CT abdomen and pelvis, impression mild intrahepatic and extrahepatic biliary ductal dilatation with inflammation in the right upper quadrant near the cystic duct. Findings concerning for acute cholecystitis, hepatosplenomegaly. No evidence for any bowel obstruction or inflammation. Normal appendix. Mild prostatomegaly with bladder wall thickening suggestive of outlet obstruction. Chest x-ray, mild bibasilar atelectasis. MRCP shows cholelithiasis with evidence of acute cholecystitis. No evidence of choledocholithiasis or biliary ductal dilatation. No filling defects identified within the biliary tree. HOSPITAL COURSE: This is a 69-year-old male, who came into the ED with complaints of abdominal pain, nausea, vomiting, decreased oral intake with imaging studies consistent with acute cholecystitis. General Surgery and GI were consulted. As per GI, no further workup was needed, as the MRCP shows no evidence of any CBD dilatation. As for General surgery, the patient underwent status post laparoscopic cholecystectomy on 07/11/2019. The patient's gallbladder was gangrenous in nature. The patient maintained on IV antibiotics while here. His white count was elevated on admission, downtrended are normal. He was tolerating soft diet prior to being discharged to home. He will be discharged on pain control as well as oral antibiotics. The patient was otherwise cleared for discharge by General Surgery. OSVALDO drain was removed prior to being discharged to home. On the day of discharge, vital signs were stable, labs were reviewed and stable. The patient is seen and evaluated, examined thoroughly on the day of discharge. No other complaints. The patient verbalized understanding and agrees to plan of care accordingly with followup appointment as an outpatient with the primary care physician in 1 week, General Surgery in 1 week time. Also, the patient had an A1c that was elevated. He was newly diagnosed diabetic and will be discharged on oral anti-glycemic medication. DISPOSITION: Home. CONDITION: Stable. DIET: Heart healthy. MEDICATIONS: See med reconciliation form. In the event of new or worsening symptoms, the patient is advised to come back to the ED for further evaluation. Discharge summary took greater than 35 minutes. MD ANA Starks/BIBI /[id number]
== END 2019-07-13 15:30 | disposition home or self-care (01) | DRG 854 ==
LOC: ER 08:43 → ERHOLD 11:10 → MED/SURG2 16:46
PROVIDERS: ADMIT Internal Medicine; ATTEND Internal Medicine
PROC: 0FT44ZZ Resection of Gallbladder, Percutaneous Endoscopic Approach (ICD-10-PCS; principal; 2019-07-11 10:53)
DX: A41.9 Sepsis, unspecified organism (principal); K80.00 Calculus of gallbladder with acute cholecystitis without obstruction; K82.A1 Gangrene of gallbladder in cholecystitis; E87.8 Other disorders of electrolyte and fluid balance, not elsewhere classified; E11.65 Type 2 diabetes mellitus with hyperglycemia; Z79.4 Long term (current) use of insulin
CPT/HCPCS: 36415; 71045; 74177; 74181; 76705; 80053; 80061; 81001; 82150; 82550; 82553; 83036; 83690; 83735; 84484; 85025; 85610; 85730; 87040; 87071; 87075; 87086; 87186; 87205; 88304; 93005; 96361; 99284; C1766; J1100; J1170; J2001; J2175; J2270; J2405; J2543; J3010; J7030; Q9967

== ENCOUNTER 2021-12-01 15:40 | Emergency (ER) | payer MEDICARE, OTHER ==
[~2021-12-01] VITALS: Ht 172.7 cm; Wt 81.6 kg
[~2021-12-01 15:40] MED LIST: JANUVIA100 MG PO; LEVAQUIN500 MG PO; TYLENOL # 31 EA PO
== END 2021-12-01 16:05 | disposition home or self-care (01) ==
LOC: ER 15:45
DX: R19.7 Diarrhea, unspecified (principal)
CPT/HCPCS: 99282

== ENCOUNTER 2024-09-19 20:37 | Emergency (ER) | payer MEDICARE, OTHER ==
[~2024-09-19] VITALS: Ht 165.1 cm; Wt 81.6 kg
[2024-09-19 23:22] VITALS: PULSE 73; RESP 16; TEMP 98.6; O2SAT 98
[2024-09-19] MEDS ORDERED: IBUPROFEN600 MG PO (23:24)
== END 2024-09-19 23:25 | disposition home or self-care (01) ==
LOC: ER 21:55
DX: M25.561 Pain in right knee (principal); M17.11 Unilateral primary osteoarthritis, right knee
CPT/HCPCS: 99283